=== PATIENT | male | born 1970 | race Caucasian/White ===

== ENCOUNTER 2018-06-03 16:59 | Emergency (ER) | payer SELFPAY | END 2018-06-03 19:26 | disposition home or self-care (01) | LOC: FTE 16:59 | DX: L72.3 Sebaceous cyst (principal) | CPT/HCPCS: 99283 ==

== ENCOUNTER 2018-06-07 18:34 | Emergency (ER) | payer SELFPAY ==
[2018-06-07] MEDS: LIDOCAINE 1% (MDV) 20 ML INJ SC (19:06)
[2018-06-07] MEDS: ACETAMINOPHEN 325 MG TAB PO (19:10)
[2018-06-07] MEDS: DEXAMETHASONE 4 MG TAB PO (19:46)
== END 2018-06-07 19:50 | disposition home or self-care (01) ==
LOC: FTE 18:34
DX: B02.9 Zoster without complications (principal); L02.811 Cutaneous abscess of head [any part, except face]
CPT/HCPCS: 10060; 99283-25